=== PATIENT | male | born 1935 | race Caucasian/White ===

== ENCOUNTER 2017-03-28 06:45 | Inpatient (IN) | payer MEDICARE, OTHER ==
[~2017-03-28] VITALS: Ht 188 cm; Wt 85.7 kg
[~2017-03-28 06:45] MED LIST: BUMEX2 MG PO; CARDIZEM CD240 MG PO; CARDIZEM LA120 MG PO; COLACE100 MG PO; COREG6.25 MG PO; COUMADIN5 MG PO; FLOMAX0.4 MG PO; KLOR-CON M2020 MEQ PO; LASIX40 MG PO; PRAVACHOL10 MG PO; PRAVACHOL20 MG PO; PROSCAR5 MG PO; XARELTO10 MG; XARELTO15 MG PO; XARELTO20 MG PO
[2017-03-28 07:18] LABS: BASOPHILS 0.1 % (0-2); EOSINOPHILS 0 % (0-7); HEMATOCRIT 40.5 % (42.0-54.0); HEMOGLOBIN 12.9 g/dL (13.5-17.5); IMMATURE GRANULOCYTES 0.4 % (0-5); MCH 31.7 pg (26.0-34.0); MCHC 31.9 g/dL (31.0-37.0); MCV 99.5 fL (80.0-100.0); MEAN PLATELET VOLUME 11.1 fL (7.4-10.4); MONOCYTES 9.4 % (2-11); NEUTROPHILS 81.1 % (40-80); PLATELET COUNT 196 10x3/uL (130-400); RBC 4.07 10x6/uL (4.20-6.10); RDW 13.8 % (11.5-14.5); WBC 19.6 10x3/uL (4.8-10.8)
[2017-03-28 07:33] LABS: ALBUMIN 3.1 g/dL (3.4-5.0); ANION GAP 11.3 mmol/L (8-16); BILIRUBIN - TOTAL 1.23 mg/dL (0.2-1.3); CALCIUM 8.5 mg/dL (8.5-10.1); CARBON DIOXIDE 29.9 mmol/L (21.0-32.0); CREATININE - SERUM 1.9 mg/dL (0.6-1.3); POTASSIUM - SERUM 3.2 mmol/L (3.5-5.1); PROTEIN - SERUM 6.7 g/dL (6.4-8.2)
[2017-03-28 07:58] LABS: TROPONIN-I 0.119 ng/mL (0.000-0.060)
[2017-03-28 09:13] LABS: APPEARANCE CLOUDY (CLEAR); BACTERIA MODERATE /hpf (NONE SEEN); BILIRUBIN NEGATIVE (NEGATIVE); COLOR YELLOW (YELLOW); EPITHELIAL CELLS 0-5 /hpf (0-5); GLUCOSE NEGATIVE (NEGATIVE); KETONE NEGATIVE (NEGATIVE); LEUKOCYTE ESTERASE 2+ (NEGATIVE); MUCUS <1+ /lpf (NONE SEEN); NITRITE NEGATIVE (NEGATIVE); PROTEIN 1+ mg/dL (NEGATIVE); UROBILINOGEN NORMAL (NORMAL); WHITE CELLS - URINE >50 /hpf (0-5)
--- NOTE | 2017-03-28 09:28 | NUR ---
TRANSFER FROM ER BY STRETCHER. OREINTED TO ROOM. CALL LIGHT IN REACH. WILL CONT. PLAN OF CARE.
[2017-03-28] MEDS ORDERED: FERROUS SULFAT325 MG PO (09:47)
[2017-03-28 09:57] VITALS: BP 105/60; BMI 24.4
--- NOTE | 2017-03-28 15:18 | NUR ---
US RESULTS CALLED TO DR. CARRILLO.
--- NOTE | 2017-03-28 19:50 | NUR ---
PT RESTING IN BED. ALERT/ORIENTED. O2 @ 2L/NC WITH NONLABORED RESPIRATIONS. 89 CAF PER TELEMETRY. CARDIZEM DRIP AT 5ML/HR INFUSING TO LEFT HAND, WELL NS @ 75ML/HR. NO NEEDS AT THIS TIME. CALL LIGHT IN REACH. CPOC.
[2017-03-28 21:33] VITALS: BP 118/71
--- NOTE | 2017-03-28 22:11 | NUR ---
BEDTIME MEDS GIVEN. PT PULLED UP AND ASSISTED TO REPOSITION. IVF NS @ 75ML/HR AND CARDIZEM AT 5ML/HR INFUSING TO LEFT HAND. CPOC.
[2017-03-28 23:00] VITALS: BP 115/73
[2017-03-29 05:34] LABS: BASOPHILS 0.2 % (0-2); EOSINOPHILS 0.9 % (0-7); HEMATOCRIT 38.5 % (42.0-54.0); HEMOGLOBIN 12.3 g/dL (13.5-17.5); IMMATURE GRANULOCYTES 0.6 % (0-5); LYMPHOCYTES 16.3 % (15-50); MCH 32.1 pg (26.0-34.0); MCHC 31.9 g/dL (31.0-37.0); MCV 100.5 fL (80.0-100.0); MEAN PLATELET VOLUME 11.8 fL (7.4-10.4); MONOCYTES 16.5 % (2-11); NEUTROPHILS 65.5 % (40-80); PLATELET COUNT 208 10x3/uL (130-400); RBC 3.83 10x6/uL (4.20-6.10); WBC 16.3 10x3/uL (4.8-10.8)
[2017-03-29 06:23] LABS: ALBUMIN 2.5 g/dL (3.4-5.0); BILIRUBIN - TOTAL 0.47 mg/dL (0.2-1.3); CALCIUM 8.3 mg/dL (8.5-10.1); CARBON DIOXIDE 29.5 mmol/L (21.0-32.0); CREATININE - SERUM 1.5 mg/dL (0.6-1.3); POTASSIUM - SERUM 3.5 mmol/L (3.5-5.1)
[2017-03-29 06:25] LABS: TROPONIN-I 0.088 ng/mL (0.000-0.060)
[2017-03-29 06:37] VITALS: BP 110/60
--- NOTE | 2017-03-29 07:36 | NUR ---
AWAKE AND DRINKING COFFEE. MONITOR SHOW UCAF @126. CARDIZEM GTT @5. [facility]
[2017-03-29 08:22] VITALS: BP 101/63
[2017-03-29 11:00] VITALS: Ht 188 cm; Wt 85.7 kg
[2017-03-29 11:43] VITALS: BP 134/83
--- NOTE | 2017-03-29 16:52 | NUR ---
RESTING QUIETLY. VISITING WITH FAMILY.
--- NOTE | 2017-03-29 19:00 | NUR ---
INITIAL ROUNDS MADE. PT SITTING UP IN BED RESTING WELL, WATCHING TV. NO NEEDS OR C/O VOICED AT THIS TIME. CALL LIGHT IN REACH. WILL CONT TO MONITOR.
[2017-03-29 20:00] VITALS: BP 131/94
[2017-03-30] VITALS: BP 122/81
--- NOTE | 2017-03-30 01:05 | NUR ---
PARTS INSPECTOR AT BEDSIDE FOR VS. NEEDS ADDRESSED AT THIS TIME. CALL LIGHT IN REACH. WILL CONT TO MONITOR.
--- NOTE | 2017-03-30 01:41 | NUR ---
LT HAND IV PULLED OUT IN COVERS. RESITED 20G RT FA, X1 STICK.
[2017-03-30 05:23] LABS: BASOPHILS 0.3 % (0-2); EOSINOPHILS 0.8 % (0-7); HEMATOCRIT 40.3 % (42.0-54.0); HEMOGLOBIN 12.6 g/dL (13.5-17.5); IMMATURE GRANULOCYTES 0.6 % (0-5); LYMPHOCYTES 20.1 % (15-50); MCH 31.7 pg (26.0-34.0); MCHC 31.3 g/dL (31.0-37.0); MCV 101.3 fL (80.0-100.0); MEAN PLATELET VOLUME 12.2 fL (7.4-10.4); MONOCYTES 12.4 % (2-11); NEUTROPHILS 65.8 % (40-80); RBC 3.98 10x6/uL (4.20-6.10); RDW 13.8 % (11.5-14.5); WBC 14.2 10x3/uL (4.8-10.8)
[2017-03-30 05:34] LABS: PLATELET COUNT 250 10x3/uL (130-400)
[2017-03-30 06:17] LABS: ANION GAP 11.9 mmol/L (8-16); CALCIUM 8.3 mg/dL (8.5-10.1); CARBON DIOXIDE 30.5 mmol/L (21.0-32.0); CREATININE - SERUM 1.6 mg/dL (0.6-1.3); POTASSIUM - SERUM 3.4 mmol/L (3.5-5.1)
--- NOTE | 2017-03-30 08:00 | NUR ---
ASSESSMENT COMPLETED. TELEMERTY SHOWS AFIB. 02 AT 2 LM PER NC. IV TO RIGHT FA WITH NS AT 75 AND CARDIZEM AT 10. SR UP WITH CALL LIGHT IN REACH FAMILY AT BEDSIDE. WILL MONITOR
[2017-03-30 09:06] VITALS: BP 115/75
--- NOTE | 2017-03-30 11:48 | NUR ---
PT SLEEPING AT MOMENT. FAMILY AT BEDSIDE. MONITOR SHOWS UCAF @ 96. CARDIZEM GTT ON AT 10.
[2017-03-30 11:57] VITALS: BP 134/81
--- NOTE | 2017-03-30 15:35 | NUR ---
Patient Name: RAQUEL JENKINS Admission Status: ER Accout number: [id number] Admission Date: 03-28-2017 : 1935 Admission Diagnosis: Attending: POLLY Current LOS: 2 Anticipated DC Date: Planned Disposition: Home Primary Insurance: MEDICARE A & B Discharge Planning Comments: CM MET WITH PATIENT AND HIS SON HAZEL JENKINS (WHO IS OUT OF TOWN FOR RAILROAD MOST OF THE TIME). PATIENT STATED THAT HE PLANS TO RETURN HOME ALONE, BUT STATED THAT HAZEL AND HIS HEMANTH LIVE JUST NEXT DOOR. HE STATED THAT HEMANTH JENKINS, [id number], , WILL BE HIS TRANSPORT HOME. STATED THAT HE COULD NOT THINK OF ANY NEEDS FOR DISCHARGE. PATIENT IS CURRENTLY ON OXYGEN AT 2L N/C, AND DOES NOT USE HOME OXYGEN. CM WILL FOLLOW TO SEE IF WALK STUDY WILL BE NEEDED BEFORE DISCHARGE. CM WILL FOLLOW AND ASSIST NEEDED. Back Maker: Cecelia Srinivasan Is the patient Alert and Oriented? Yes * How many steps to enter\exit or inside your home? 4 * PCP DR CATRACHO AZAR * Pharmacy [facility] [address] * Preadmission Environment Home Alone * ADLs Independent * Equipment None * List name and contact numbers for known caregivers / representatives who currently or will assist patient after discharge: HEMANTH JENKINS, DAUGHTER IN LAW, * Community resources currently utilized None * Additional services required to return to the preadmission environment? No * Can the patient safely return to the preadmission environment? Yes * Has this patient been hospitalized within the prior 30 days at any hospital? No
[2017-03-30 16:03] VITALS: BP 130/84
--- NOTE | 2017-03-30 19:59 | NUR ---
CT CALLED AND STATED THAT THEIR RADIOLOGIST WANTED TO POSTPONE THE CT OF ABD/PELVIS TONIGHT DUE TO A ELEVATED CREATINE, HYDRATE THE PT OVER NIGHT AND DO THE SCAN IN THE AM, TOLD ROSEANNE THAT DR AVENDANO IS AWARE OF THE ELEVATED CREATINE AND STILL WANTED THE SCAN DONE TONIGHT, AND IF THEY READ HIS NOTES IT WILL EXPLAIN EVERYTHING. ROSEANNE SAID THAT SHE WILL LET THE RADIOLOGIST KNOW.
[2017-03-30 20:00] VITALS: BP 127/89
--- NOTE | 2017-03-30 20:10 | NUR ---
SPOKE WITH ROSEANNE IN CT, SHE SPOKE WITH THE RADIOLOGIST AND THEY AGREED TO GO AHEAD TO AND DO THE CT TONIGHT BUT TO GO AHEAD AND HYDRATE PT AND WILL RECHECK CREATINE IN AM.
--- NOTE | 2017-03-30 21:43 | NUR ---
GONE TO CT BY WC.
--- NOTE | 2017-03-30 22:01 | NUR ---
BACK TO ROOM FORM CT. HS MEDS GIVEN WITH FRESH ICE WATER. PT DENIES PAIN OR NEEDS, BED LOW, CL IN REACH.
[2017-03-31 01:17] VITALS: BP 107/87
[2017-03-31 05:10] LABS: BASOPHILS 0.4 % (0-2); EOSINOPHILS 1.3 % (0-7); HEMATOCRIT 40.2 % (42.0-54.0); HEMOGLOBIN 12.6 g/dL (13.5-17.5); IMMATURE GRANULOCYTES 1.1 % (0-5); MCH 31.3 pg (26.0-34.0); MCHC 31.3 g/dL (31.0-37.0); MEAN PLATELET VOLUME 11.7 fL (7.4-10.4); NEUTROPHILS 65.2 % (40-80); PLATELET COUNT 253 10x3/uL (130-400); RBC 4.02 10x6/uL (4.20-6.10); RDW 13.9 % (11.5-14.5); WBC 14.2 10x3/uL (4.8-10.8)
[2017-03-31 05:37] LABS: ANION GAP 9.8 mmol/L (8-16); CALCIUM 8.4 mg/dL (8.5-10.1); CARBON DIOXIDE 30.6 mmol/L (21.0-32.0); CREATININE - SERUM 1.4 mg/dL (0.6-1.3); PHOSPHOROUS 2.3 mg/dL (2.5-4.9); POTASSIUM - SERUM 3.4 mmol/L (3.5-5.1)
--- NOTE | 2017-03-31 07:12 | NUR ---
AM ROUNDS- PT IN BED, DENIES ANY NEEDS AT THIS TIME. URINAL EMPTIED, RT FA IV INFUSING 1/[id number] AT 100 AND CARDIZEM INFUSING AT 5. NC AT 2L. NAD NOTED, CALL LIGHT IN REACH, BED LOW, BEDSIDE RAILS X2, WILL CONTINUE TO MONITOR.
[2017-03-31 08:00] VITALS: BP 117/79
--- NOTE | 2017-03-31 10:00 | NUR ---
TELEMETRY [facility]. RH 120. RESP UL ON 02 2L NC. IV PATENT. SON AT BS. CALL LIGHT IN REACH. WILL MONITOR NEEDS.
--- NOTE | 2017-03-31 10:38 | NUR ---
IV STARTED TO RIGHT WRIST WITH 20 GAUGE CATH X 2 STICKS AND FLUSHED WITH NS. LINE IS PATENT.
--- NOTE | 2017-03-31 13:06 | NUR ---
Nutrition follow-up: Diet: Low sodium PO intake 50-75% of meals Labs reviewed Wt: 189# PO intake fair to good at this time. RDN following.
[2017-03-31 14:08] VITALS: BP 138/82
[2017-03-31 16:00] VITALS: BP 135/88
--- NOTE | 2017-03-31 19:28 | NUR ---
RECEIVED REPORT, PT TALKING ON PHONE, BED ID LOW, SRX2, CALL LIGHT IN REACH, WILL CONTINUE PLAN OF CARE
[2017-03-31 21:40] VITALS: BP 146/83
--- NOTE | 2017-04-01 01:09 | NUR ---
CORRESPONDENCE COORDINATOR AT BEDSIDE TO OBTAIN VITALS, CALL LIGHT IN REACH. WILL CONTINUE WITH PLAN OF CARE.
[2017-04-01 01:21] VITALS: BP 119/66
--- NOTE | 2017-04-01 03:22 | NUR ---
ASSESSMENT COMPLETE, SEE FLOW SHEET, PT SLEEPING NO DISTRESS NOTICED, BED IS LOW, SRX2, CALL LIGHT IN REACH, WILL CONTINUE PLAN OF CARE
[2017-04-01 04:47] VITALS: BP 125/83
[2017-04-01 05:20] LABS: BASOPHILS 0.3 % (0-2); EOSINOPHILS 0.7 % (0-7); HEMATOCRIT 40.4 % (42.0-54.0); HEMOGLOBIN 12.8 g/dL (13.5-17.5); IMMATURE GRANULOCYTES 1.6 % (0-5); LYMPHOCYTES 17.9 % (15-50); MCH 31.7 pg (26.0-34.0); MCHC 31.7 g/dL (31.0-37.0); MONOCYTES 11.3 % (2-11); NEUTROPHILS 68.2 % (40-80); PLATELET COUNT 286 10x3/uL (130-400); RBC 4.04 10x6/uL (4.20-6.10); RDW 13.9 % (11.5-14.5); WBC 15.4 10x3/uL (4.8-10.8)
[2017-04-01 05:39] LABS: ANION GAP 11.6 mmol/L (8-16); CALCIUM 8.4 mg/dL (8.5-10.1); CARBON DIOXIDE 29.1 mmol/L (21.0-32.0); CREATININE - SERUM 1.4 mg/dL (0.6-1.3); PHOSPHOROUS 2.7 mg/dL (2.5-4.9); POTASSIUM - SERUM 3.7 mmol/L (3.5-5.1)
--- NOTE | 2017-04-01 07:54 | NUR ---
ASSESSMENT DONE, DENIES NEEDS. SON AT SIDE.
[2017-04-01 08:40] VITALS: BP 141/82
--- NOTE | 2017-04-01 08:49 | EC ---
PATIENT:RAQUEL JENKINS DATE OF SERVICE: 03/28/17 SEX: M MEDICAL RECORD: [id number] DATE OF : [birth year] LOCATION:D.M2 D.212 AGE OF PATIENT: 81 ADMISSION DATE: 03/28/17 REFERRING PHYSICIAN: INTERPRETING PHYSICIAN: BRISA HERRERA MD ECHOCARDIOGRAM REPORT ECHO CHARGES 4 ECHO COMPLETE CLINICAL DIAGNOSIS: WEAKNESS/AFIB HX CHF/AFLUTTER/PACER ECHOCARDIOGRAPHIC MEASUREMENTS (adult normal given) AC root (d.<3.7cm) 3.6 LV Septum d (<1.2 cm> 1.4 Valve Excursion 1.5 LV Septum (systole) 1.8 Left Atria (s.<4.0cm> 4.9 LVPW d(<1.2cm) 1.1 RV (d.<2.3cm) 5.0 LVPW (sytole) 1.5 LV diastole(<5.6CM) 6.7 MV E-F(>70mm/sec) LV systole 5.8 LVOT Diameter 1.4 MV exc.(>10mm) 1.1 Est.ejection fraction (50-75%) Pericardial Effusion N DOPPLER: LVIT A 91.0 E LA RVSP 44 LVOT 81 AOP1/2T Asc. Ao 136 RVOT 64 RA PA 111 AV Gradient Peak 7.36 AV Mean 3.40 AV Area 1.1 MV Gradient Peak MV Mean MV Area COMMENTS: Garment Manufacturer: Esperanza VIGLI Subway Train Driver:Melvina Grimm TAPE# PACS DATE OF SERVICE: 03/28/2017 Echocardiogram FINDINGS: 1. Left ventricular chamber size is dilated. Left ventricular systolic function is moderately to severely reduced, overall ejection fraction 25% to 30%. 2. Left atrium is enlarged at 4.9 cm. Right atrium and right ventricular chamber sizes are as well mildly dilated giving 4-chamber dilatation. ECHOCARDIOGRAM REPORT [id number] RAQUEL JENKINS 3. Valvular structures have normal structure and motion. 4. Doppler interrogation reveals mild aortic insufficiency, mild mitral regurgitation, moderate tricuspid regurgitation, no other valvular insufficiency or stenosis. Pulmonary systolic pressure is mildly elevated estimated at 44 mmHg. 5. No evidence of pericardial effusion or left ventricular thrombus. 6. The patient is in atrial fibrillation during the study. TRANSINT:[id number] Voice Confirmation ID: [id number] DOCUMENT ID: [id number] BRISA HERRERA MD at 0849 CC: [id number] DICTATION DATE: 03/29/17922 DIAGNOSTIC MEDICAL SONOGRAPHER: 03/29/17 1752 ADM IN [facility] [address] [id number]
--- NOTE | 2017-04-01 09:30 | NUR ---
RESP UL ON . IV PATENT. CALL LIGHT IN REACH. WILL CONT. PLAN OF CARE.
--- NOTE | 2017-04-01 16:34 | NUR ---
WITHOUT CHANGES OR DISTRESS NOTED AT THIS TIME. DENIES NEEDS. FAMILY AT SIDE.
[2017-04-01] MEDS ORDERED: LEVAQUIN750 MG PO (18:53)
--- NOTE | 2017-04-01 20:34 | NUR ---
IV REMOVED, DISCHARGE INSTRUCTION EXPLAIN, PRESCRIPE ESCRIBE TO MELYSSA, PT DISCHARGE HOME WITH SON
--- NOTE | 2017-04-02 12:53 | CN ---
PATIENT NAME:RAQUEL JENKINS MEDICAL RECORD: [id number] : 37 LOCATION:D. D.2120 ADMIT DATE: 03/28/17 ACCOUNT: [id number] CONSULTING PHYSICIAN: LB GOEL MD REFERRING PHYSICIAN: CATRACHO AZAR MD DATE OF CONSULTATION: 03/28/2017 HISTORY OF PRESENT ILLNESS: An 81-year-old gentleman with known history of coronary artery disease, also has history of atrial fibrillation, true sick sinus syndrome status post pacemaker placement. He has been on Xarelto for CVA prophylaxis, actually does quite well at home. Feeling malaise, fatigue, tiredness for the last few days, presented to the ER, was found to have UTI, incidentally noted to have atrial fibrillation with RVR, currently rates are better on Cardizem drip. We are asked to see him concerning his cardiovascular status. PAST MEDICAL HISTORY: Includes: 1. History of atrial fibrillation and true sick sinus syndrome, status post permanent pacemaker placement. 2. Hypertension. 3. Coronary artery disease. 4. Dyslipidemia. 5. BPH. ALLERGIES: None known. REGULAR MEDICATIONS: Include Flomax 0.4 daily, Xarelto 15 mg daily, Coreg 6.25 b.i.d., diltiazem 120 mg b.i.d., pravastatin 20 every day, Bumex 2 daily, potassium supplementation, Proscar 5 daily. SOCIAL HISTORY: Lives here in [place]. He is a nonsmoker. Easily takes care of all ADLs and stays active. REVIEW OF SYSTEMS: The patient reports easy bruising but reports no swollen glands. The patient reports no fever, no night sweats, no significant weight gain, no significant weight loss. No significant exercise tolerance. The patient reports no dry eyes, no irritation, no vision change. Patient reports no difficulty hearing and no ear pain. Patient reports no frequent nose bleeds or nose and sinus problems. Patient reports on arm pain on exertion. No shortness of breath while lying down. No history of heart murmur. Patient reports no cough, no wheezing or coughing up blood. Patient reports no abdominal pain, no vomiting. Normal appetite. No diarrhea and not vomiting blood. No nausea and no constipation. Patient reports no incontinence. No difficulty urinating. No hematuria. No increased frequency. Patient reports no muscle aches. No weakness, no arthralgias, no back pain. No swelling of the extremities. Patient reports no abnormal mole, no jaundice, no rashes. Reports no loss of consciousness. No weakness and no numbness. No seizures, dizziness, or headaches. The patient reports no depression, no sleep disturbance, feeling safe in a relationship and no alcohol abuse. Patient reports on fatigue. Reports no runny nose or sinus pressure. No itching, no hives, and no frequent sneezing. PHYSICAL EXAMINATION: GENERAL: Pleasant gentleman who appears stated age. No acute distress. VITAL SIGNS: Blood pressure 105/60, pulse 115. CONSULT REPORT [id number] RAQUEL JENKINS HEENT: Normocephalic, atraumatic. NECK: No bruits noted. HEART: Irregular, tachycardic, II/ systolic ejection murmur. LUNGS: Actually good excursion. ABDOMEN: Soft, nontender. EXTREMITIES: Pulses preserved, 2+ with no edema. NEUROLOGICAL: Grossly intact. DIAGNOSTIC DATA: ECG shows AFib, RVR. IMPRESSION: Atrial fibrillation with rapid ventricular response suspected secondary to intravascular volume depletion, urinary tract infection and increased catacholmine drive, etc. Agree with Cardizem drip, rehydration. We will check echocardiographic study since it has been over a year since previous echo. Further recommendations based on the above. TRANSINT:[id number] Voice Confirmation ID: [id number] DOCUMENT ID: [id number] LB GOEL MD at 1253 CC: [id number] DICTATION DATE: 03/28/17 1022 HVAC MECHANICAL ENGINEER: 03/28/17 1125 DIS IN 04/01/17 [id number] [place] [address]
--- NOTE | 2017-04-06 10:04 | CN ---
PATIENT NAME:RAQUEL JENKINS MEDICAL RECORD: [id number] : 37 LOCATION:D.M2 D.2120 ADMIT DATE: 03/28/17 ACCOUNT: [id number] CONSULTING PHYSICIAN: CLARISSA BROWN MD REFERRING PHYSICIAN: CATRACHO AZAR MD DATE OF CONSULTATION: 03/30/2017 CHIEF COMPLAINT: Hernia and atrial fibrillation with rapid ventricular response. HISTORY OF PRESENT ILLNESS: I was asked to see this patient in consultation by Dr. Talbot. The patient has been bacteremic. He has a very large right inguinal hernia. A portion of this is incarcerated. The hernia is nontender. There may be a large hydrocele associated with this hernia. He has had no nausea and no vomiting. He does not have abdominal distention. I do not believe that he has any strangulation nor does he have a bowel obstruction. The hernia is partially reducible. Palpation and attempts of reducing the right inguinal hernia aggravate. Nothing alleviates. The symptoms are mild. It causes mild discomfort. The patient states that he has not had an interest in having the hernia repaired. The patient does have polycystic kidney disease. This is a consultation note addendum. For the typed portion of the consult note, including the past medical and surgical history, allergies and social history, please see the chart. REVIEW OF SYSTEMS: No nausea, no vomiting, no fever and no chills. The rest of the review of systems is negative other than as is described above. PHYSICAL EXAMINATION: GENERAL: The patient does not appear acutely ill. He does not appear chronically ill. VITAL SIGNS: Reviewed. HEAD: External ears appear normal. EYES: Extraocular movements are intact. NECK: Trachea is midline. CHEST: No intercostal retractions. PULMONARY: Nonlabored, no stridor. ABDOMEN: Nontender. GENITOURINARY: As described above. Huge right inguinal hernia, which is partially reducible. Both testicles are descended. INTEGUMENT: No rash and no ulcerations. PSYCHIATRIC: Normal affect. NEUROLOGIC: Nonfocal, no lethargy. The patient answers questions appropriately and moves all extremities well. BACK: No thoracic kyphosis. LYMPHATIC: No lymphangitic streaking of the exposed extremities. IMPRESSION: Huge right inguinal hernia, which I doubt is the source of the patient's illness at this time. As he has been bacteremic, a right inguinal hernia repair with mesh is likely contraindicated as the mesh would have a significant chance of becoming infected. The patient is not interested in having a hernia repair at this time. PLAN: Dr. Talbot would like to obtain a CT scan and I will review the CT images CONSULT REPORT [id number] RAQUEL JENKINS once the scan had been performed. The patient's hernia can be repaired as an outpatient. TRANSINT:[id number] Voice Confirmation ID: [id number] DOCUMENT ID: [id number] CLARISSA BROWN MD at 1004 CC: CATRACHO AZAR MD [id number] DICTATION DATE: 04/01/17 1126 ROLL LINE OPERATOR: 04/01/17 2235 DIS IN 04/01/17 [id number] [place] [address]
== END 2017-04-01 20:36 | disposition home or self-care (01) | DRG 872 ==
LOC: D.ER 06:45 → D.M2 08:42
PROVIDERS: Emergency Medicine; Family Medicine; ADMIT Family Medicine
DX: A41.9 Sepsis, unspecified organism (principal); Q61.3 Polycystic kidney, unspecified; N17.9 Acute kidney failure, unspecified; K40.30 Unilateral inguinal hernia, with obstruction, without gangrene, not specified as recurrent; N30.90 Cystitis, unspecified without hematuria; I25.10 Atherosclerotic heart disease of native coronary artery without angina pectoris; I48.2 Chronic atrial fibrillation; I10 Essential (primary) hypertension; E78.5 Hyperlipidemia, unspecified; N40.0 Benign prostatic hyperplasia without lower urinary tract symptoms; N43.3 Hydrocele, unspecified; E86.9 Volume depletion, unspecified; Z95.0 Presence of cardiac pacemaker

== ENCOUNTER → 2017-04-14 13:33 | Outpatient (CLI) | payer MEDICARE, OTHER ==
[2017-03-29 11:00] VITALS: BMI 24.4
[~2017-04-14 13:33] MED LIST changes: +FERROUS SULFAT325 MG PO; +LEVAQUIN750 MG PO
== END | disposition home or self-care (01) ==
LOC: D.US 10:00
DX: E21.3 Hyperparathyroidism, unspecified (principal)

== ENCOUNTER 2017-07-30 05:51 | Day surgery (SDC) | payer MEDICARE, OTHER ==
[2017-07-29 09:00] LABS: BASOPHILS 0.7 % (0-2); EOSINOPHILS 1.7 % (0-7); HEMOGLOBIN 14.4 g/dL (13.5-17.5); IMMATURE GRANULOCYTES 0.1 % (0-5); MCH 32.5 pg (26.0-34.0); MCV 101.6 fL (80.0-100.0); MEAN PLATELET VOLUME 11.4 fL (7.4-10.4); MONOCYTES 10.6 % (2-11); NEUTROPHILS 55.9 % (40-80); RBC 4.43 10x6/uL (4.20-6.10); RDW 13.8 % (11.5-14.5); WBC 8.4 10x3/uL (4.8-10.8)
[2017-07-29 09:13] LABS: ANION GAP 8.9 mmol/L (8-16); CALCIUM 9.2 mg/dL (8.5-10.1); CARBON DIOXIDE 32.5 mmol/L (21.0-32.0); CREATININE - SERUM 1.7 mg/dL (0.6-1.3); POTASSIUM - SERUM 3.4 mmol/L (3.5-5.1)
[2017-07-29 09:14] LABS: PLATELET COUNT 223 10x3/uL (130-400)
[2017-07-30 06:24] VITALS: BP 144/90; BMI 22.2
--- NOTE | 2017-07-30 12:12 | NUR ---
SIRISHA MEYERSARE ON @ ADMIT
--- NOTE | 2017-07-30 15:54 | NUR ---
1325 IV DC WITH CATHER TIP INTACT
--- NOTE | 2017-07-30 15:56 | NUR ---
1400 KAYCE CATHER TEACHING DONE WITH PATIENT AND SON, AND LEG BAG TEACHING, , LUZ ALBARRAN
--- NOTE | 2017-08-02 10:29 | OP ---
PATIENT NAME: RAQUEL JENKINS MEDICAL RECORD: [id number] :37 LOCATION:D.OPS ADMISSION DATE: SURGEON: WYATT VIVAS MD DATE OF OPERATION: 07/30/2017 SURGEON: Wyatt Vivas MD ANESTHESIA: General anesthesia by Cecelia Mcmullen CRNA. PREOPERATIVE DIAGNOSIS: Obstructive benign prostatic hyperplasia, recurrent urinary tract infections, and right inguinal hernia. PROCEDURES: Cystoscopy, GreenLight laser transurethral resection of the prostate, power was 80-180 kelly, laser on time 31 minutes 6 seconds, energy 211,014 joules. FINDINGS: Obstructive bilateral lateral lobes. Small bladder stone. Approximately 80 gram prostate. Single ureteral orifices bilaterally. No bladder tumors. Trabeculated bladder. ESTIMATED BLOOD LOSS: Minimal. CLINICAL HISTORY: This is an 82-year-old male, who was recently admitted to hospital for urosepsis due to recurrent E. coli UTIs. He has a very enlarged prostate and he has incomplete bladder emptying. He was also found to have a massive right inguinal hernia with bowel contents going down into the right scrotum. Finally, he was found to have hyperparathyroidism, for which he is seeing Dr. Huitron. Today, Dr. Adhikari will be reducing his right inguinal hernia and probably performing a right orchiectomy also. I will be performing a transurethral resection of prostate using the GreenLight laser. I am doing my part first and then Dr. Adhikari will follow. DESCRIPTION OF PROCEDURE: The patient was given perioperative antibiotics. He was given induction of general anesthesia and then placed in dorsal lithotomy position. He was prepped and draped. I used the laser resectoscope with visual obturator and a 30-degree lens for cystoscopy. Penile urethra was nonobstructive. No lesions were seen in the penile urethra. Going into the prostate, he has massively enlarged lateral lobes. There is a rather small median lobe. Near the bladder neck, there are some large vesicular areas of bladder mucosa, which balloon out and obstruct the bladder neck. Going into the bladder itself, he has single ureteral orifices on each side. They are in a very well defined trigonal ridge, which is unfortunately rather close to the bladder neck. There was also a small bladder stone that I tried to get out with irrigation. It did come out. No bladder tumors were seen. Furthermore, I did not see the bladder going into the hernia canal. We then introduced the laser fiber. The resection was maintained between the bladder neck and just proximal to the verumontanum on the posterior wall of the prostate. The lateral lobes to extend distal to the verumontanum. We started with the level of 80 kelly. The main aim was to create a channel posteriorly. This was done. Also, I wanted to devascularize the prostatic urethral mucosa. We encountered a fair amount of bleeding during this process, especially from the bladder neck and occasionally we had to use the coagulation setting on the laser to stop any arterial or venous bleeding that was significant. This took a fair amount of time, especially at the bladder neck and near the apex of the prostate. Once the apical tissues had been taken down and we had significant removal of the bladder OPERATIVE REPORT [id number] RAQUEL JENKINS, then I progressively increased the power level up to remove the lateral lobes more expeditiously. Whenever I did encounter significant arterial or venous bleeding, I would have to back the power level down to about 100 kelly in order to create more heating than vaporization. At the end of procedure, the verumontanum was still intact. We had gotten down to capsule almost all around with prostatic stones being unroofed. There was a clear channel all the way through when sitting at the external urinary sphincter going all the way through to the bladder neck. No bleeding was seen. The scope was then removed and the laser was turned off. A 20-Slovak 3-way Mejia catheter was introduced into the bladder. The balloon was inflated with 30 cc of sterile water. A catheter plug was placed to obstruct the inflow port of the catheter and the bag was put to straight drainage. The patient will be repositioned in supine position and he will be reprepped and redraped for Dr. Adhikari surgery. TRANSINT:[id number] Voice Confirmation ID: [id number] DOCUMENT ID: [id number] WYATT VIVAS MD at 1029 CC: [id number] DICTATION DATE: 07/30/17 0957 MEDICAL LAB DIRECTOR: 07/30/17 1133 [facility] 07/30/17 [id number] [place] [address]
--- NOTE | 2017-08-04 10:17 | OP ---
PATIENT NAME: RAQUEL JENKINS MEDICAL RECORD: [id number] :37 LOCATION:D.OPS ADMISSION DATE: SURGEON: CLARISSA BROWN MD DATE OF OPERATION: 07/30/2017 PREOPERATIVE DIAGNOSIS: Huge right inguinal scrotal hernia. POSTOPERATIVE DIAGNOSES: Huge right incarcerated inguinal scrotal hernia. PROCEDURES: 1. Right inguinal hernia repair with mesh. 2. Right orchiectomy. SURGEON: Clarissa Brown MD FLATCAR WHACKER: None. BLOOD LOSS: Minimal. ANESTHESIA: General. COMPLICATIONS: None. The risks, possible complications and alternatives to procedure were discussed with the patient. He elects to proceed. OPERATIVE COURSE: The patient was conveyed to the operating room electively on 07/30/2017. General anesthesia was induced by the anesthesia staff. The initial procedure was a urologic procedure by Dr. Vivas. The patient was then reprepped and redraped. A transverse incision was accomplished in the right groin. Sharp dissection was carried down through skin and subcutaneous tissue as well as Syed's fascia. The external oblique aponeurosis was then incised along the direction of its fibers. I bluntly dissected down through the internal oblique and transversus abdominis muscle layers. I tried to fashion a preperitoneal pocket. This is difficult due to the huge size of the hernia sac. I was unable to reduce the hernia sac contents. A counterincision was accomplished in the right scrotum laterally. I dissected down into the hernia sac. Portions of the hernia sac were excised. There were adhesions from the colon and into the small bowel to the hernia sac. There was approximately a foot of small bowel as well as a foot of colon including the cecum and the appendix in the right hemiscrotum. I was unable to deliver these contents back into the intraabdominal compartment even after incising the peritoneum through the initial (superior) incision. Utilizing a back and forth motion I was still unable to reduce the contents. I had to divide the inguinal floor anteriorly. Even after doing this it was difficult to reduce the contents back into the abdominal cavity. I was able to do so. I had to sacrifice the right testicle. The cord structures were ligated highly and divided distal to this. The testicle was then bluntly dissected out of the right hemiscrotum and sent as a specimen. I excised portion of the hernia sac. I cut 2 ovals out of a polypropylene mesh. The 2 ovals were sutured together one on top of the other with a running #1 Surgidac. I reperitonealized with a running #1 Vicryl. I placed the mesh in the preperitoneal space. Once I was satisfied with placement of the mesh, I rebuilt the patient's inguinal floor. The repair was conducted with multiple OPERATIVE REPORT [id number] RAQUEL JENKINS interrupted horizontal mattress of #1 Surgidac as well as another running #1 Surgidac. The external oblique aponeurosis was closed with running #1 Vicryls. The scrotum was closed in 2 layers with interrupted 3-0 Vicryl for the deep dermis as well as a running horizontal mattress of #1 Vicryl Rapide for the scrotal skin. The superior incision was closed in several layers. Syed's fascia was approximated with interrupted 3-0 Vicryls. The subdermis was approximated with interrupted 3-0 Vicryls. The skin was approximated with a running intracuticular 4-0 Vicryl. Sterile dressings were applied. The patient was then extubated and conveyed to post-anesthesia care unit where he was in stable condition. TRANSINT:[id number] Voice Confirmation ID: [id number] DOCUMENT ID: [id number] CLARISSA BROWN MD at 1017 CC: CATRACHO AZAR MD and CLARISSA VIVAS MD [id number] DICTATION DATE: 07/30/17 1207 SLASHER RUNNER: 07/30/17 1254 [facility] 07/30/17 [id number] [place] [address]
== END 2017-07-30 14:30 | disposition home or self-care (01) ==
LOC: D.OPS 05:51 → D.PAN 08:00 → D.OPS 14:30
PROVIDERS: Anesthesiology
DX: N40.0 Benign prostatic hyperplasia without lower urinary tract symptoms (principal); K40.90 Unilateral inguinal hernia, without obstruction or gangrene, not specified as recurrent; N21.0 Calculus in bladder; I10 Essential (primary) hypertension; I50.9 Heart failure, unspecified; G47.30 Sleep apnea, unspecified; Z95.5 Presence of coronary angioplasty implant and graft; I48.91 Unspecified atrial fibrillation; R94.31 Abnormal electrocardiogram [ECG] [EKG]; Z01.812 Encounter for preprocedural laboratory examination

== ENCOUNTER 2017-08-23 16:17 | Inpatient (IN) | payer MEDICARE, OTHER ==
[2017-08-23 17:19] VITALS: BP 122/64; BMI 22.3
--- NOTE | 2017-08-23 17:29 | NUR ---
ARRIVED FROM DR. OFFICE NO APPARENT DISTRESS. PT AWAKE AND ALERTED. SEE ASSESSMENT FOR FURTHER EVAL. MONIOTR SHOWS TACY. DR CHAVEZ HERE.
--- NOTE | 2017-08-23 18:17 | NUR ---
IV X2 STARTED. CARDIZEM BOLUS AND DRIP ORDERED. BOLUS OF 20 MG GIVEN. CARDIZEM GTT STARTED AT 5. MONITOR SHOWS UNCONTROL AFIB AT PRESENT. RATE IS 115-139. NO MORE RUNS OF V TACHY. WILL CONTINUE TO MONITOR.
--- NOTE | 2017-08-23 20:00 | NUR ---
RESTING IN BED. ALERT/ORIENTED. UCAF PER TELEMETRY. PACEMAKER. NONLABORED RESPIRATIONS ON ROOM AIR. CARDIZEM DRIP AT 5ML/HR INFUSING TO LFA. ALSO HAS SALINE LOCK FURTHER UP ON SAME LFA. ASSESSMENT COMPLETED. CALL LIGHT IN REACH. CPOC.
[2017-08-23 20:59] VITALS: BP 107/59
--- NOTE | 2017-08-23 21:15 | NUR ---
ROCEPHIN IVPB NOW UP AND INFUSING TO SECOND SALINE LOCK ON LFA.
--- NOTE | 2017-08-23 23:07 | NUR ---
IV ABT COMPLETED AND PIV SALINE LOCKED. IV WITH CARDIZEM CAME APART AND SINCE PT IS ON XRALTO, THE PT BLEED ALOT BEFORE HE CALLED THE NURSE TO SAY HIS ARM FELT WET. IV CLEANED UP, RESECURED AND CARDIZEM DRIP RESTARTED AT 5ML/HR. NEW LINENS/BLANKETS/GOWN PROVIDED. PT IS NOW CLEAN AND RESTING COMFORTABLY.
[2017-08-24 00:30] VITALS: BP 120/80
--- NOTE | 2017-08-24 04:54 | NUR ---
PT HAS RESTED WITH NO DISTRESS. IV CARDIZEM INFUSING. CPOC.
--- NOTE | 2017-08-24 05:51 | NUR ---
IV LASIX ADMINISTERED. PT RESTING. CARDIZEM DRIP INFUSING.
[2017-08-24 05:59] LABS: BASOPHILS 0.1 % (0-2); EOSINOPHILS 0.8 % (0-7); HEMATOCRIT 41.9 % (42.0-54.0); HEMOGLOBIN 13.6 g/dL (13.5-17.5); IMMATURE GRANULOCYTES 0.4 % (0-5); LYMPHOCYTES 24.1 % (15-50); MCH 32.3 pg (26.0-34.0); MCHC 32.5 g/dL (31.0-37.0); MCV 99.5 fL (80.0-100.0); MEAN PLATELET VOLUME 11.8 fL (7.4-10.4); MONOCYTES 9.8 % (2-11); NEUTROPHILS 64.8 % (40-80); RBC 4.21 10x6/uL (4.20-6.10); RDW 14.8 % (11.5-14.5); WBC 13.4 10x3/uL (4.8-10.8)
[2017-08-24 06:03] VITALS: BP 116/70
[2017-08-24 06:06] LABS: PLATELET COUNT 270 10x3/uL (130-400)
[2017-08-24 06:38] LABS: ALBUMIN 2.6 g/dL (3.4-5.0); ANION GAP 13.3 mmol/L (8-16); BILIRUBIN - TOTAL 0.7 mg/dL (0.2-1.3); CALCIUM 8.9 mg/dL (8.5-10.1); CARBON DIOXIDE 26.6 mmol/L (21.0-32.0); CREATININE - SERUM 2.2 mg/dL (0.6-1.3); POTASSIUM - SERUM 3.9 mmol/L (3.5-5.1); PROTEIN - SERUM 5.9 g/dL (6.4-8.2)
[2017-08-24 08:07] VITALS: BP 102/65
--- NOTE | 2017-08-24 10:25 | NUR ---
TELEMETRY CAF. IV PATENT. SON AT BS. CALL LIGHT IN REACH. WILL MONITOR NEEDS.
--- NOTE | 2017-08-24 12:52 | NUR ---
URINE SPECIMEN COLLECTED AND TAKEN TO LAB FOR UA. WILL MONITOR.
[2017-08-24 13:38] VITALS: BP 100/73
[2017-08-24 13:47] LABS: APPEARANCE CLOUDY (CLEAR); BACTERIA MODERATE /hpf (NONE SEEN); BILIRUBIN NEGATIVE (NEGATIVE); COLOR YELLOW (YELLOW); EPITHELIAL CELLS OCC /hpf (0-5); GLUCOSE NEGATIVE (NEGATIVE); KETONE NEGATIVE (NEGATIVE); MUCUS <1+ /lpf (NONE SEEN); NITRITE NEGATIVE (NEGATIVE); PROTEIN TRACE mg/dL (NEGATIVE); UROBILINOGEN NORMAL (NORMAL); WHITE CELLS - URINE >50 /hpf (0-5)
[2017-08-24 16:52] VITALS: BP 98/73
--- NOTE | 2017-08-24 19:19 | NUR ---
UP WITH ASSIST TO BR.
--- NOTE | 2017-08-24 21:13 | NUR ---
HS MEDS GIVEN WITH FRESH ICE WATER, PT DENIES PAIN OR NEEDS, BED LOW, CL IN REACH.
[2017-08-24 21:53] VITALS: BP 114/75
--- NOTE | 2017-08-24 23:56 | NUR ---
RESTING WITH EYES CLOSED, RESPERATIONS EVEN, NO S/S DISTRESS NOTED.
--- NOTE | 2017-08-25 01:48 | NUR ---
NOTIFIED BY MT THAT PT HAD A RUN OF VTACH. ENTERED ROOM, PT AWAKE, LYING IN BED SUPINE, DENIES ANY PAIN AND DENIES FEELING ANY PALPATATIONS, PT STATED THAT HE IS "FEELING BETTER" PT IS ASYMPTOMATIC, REPOSITIONED IN BED FOR COMFORT, BED LOW, CL IN REACH, WILL CONT TO MONITOR.
[2017-08-25 02:37] VITALS: BP 127/85
--- NOTE | 2017-08-25 04:40 | NUR ---
PT LYING IN BED, AWAKE, ALERT, REQUESTING HIS URINAL. PT DENIES ANY OTHER NEEDS. CONTINUE TO MONITOR CLOSELY. PT DID HAVE A RUN OF V-TACH EARLIER, HOWEVER, PTS TELEMETRY WAS PLACED ON TOP OF PTS PACEMAKER AND PT WAS NEEDING REPOSITIONED. ONCE PT WAS REPOSITIONED AND HIS TELEMETRY REPOSITIONED ALSO, HE IMMEDIATELY WENT BACK INTO A-FIB. PT HAS REMAINED STABLE. CONTINUE TO MONITOR CLOSELY. BED LOW, CALL LIGHT IN REACH, SIDE RAILS X 2, HOB FLAT. PTS CARDIZEM GTT IS INFUSING ORDERED.
[2017-08-25 05:16] VITALS: BP 112/67
[2017-08-25 09:29] VITALS: BP 136/94
[2017-08-25 11:40] VITALS: BP 100/68
[2017-08-25 15:31] VITALS: BP 106/64
--- NOTE | 2017-08-25 16:05 | NUR ---
TELEMETRY CAF. LILIAN AGUILA DCD. WILL CONT. PLAN OF CARE.
--- NOTE | 2017-08-25 21:05 | NUR ---
HS MEDS GIVEN WITH FRESH ICE WATER, PT DENIES PAIN OR NEEDS, BED LOW, CL IN REACH.
[2017-08-25 21:32] VITALS: BP 123/81
--- NOTE | 2017-08-26 00:13 | NUR ---
FLOOR AND WALL APPLIER LIQUID AT BEDSIDE, CALL LIGHT IN REACH. WILL CONTINUE WITH PLAN OF CARE. 105 UCAF ON TELEMETRY
--- NOTE | 2017-08-26 01:50 | NUR ---
RESTING WITH EYES CLOSED, RESPERATIONS EVEN, NO S/S DISTRESS NOTED.
[2017-08-26 02:45] VITALS: BP 120/70
[2017-08-26 04:42] VITALS: BP 114/75
--- NOTE | 2017-08-26 07:30 | NUR ---
RECEIVED PT IN BED EYES CLOSED RESP UNLABORED NAD NOTED
[2017-08-26 09:45] VITALS: BP 144/85
--- NOTE | 2017-08-26 13:00 | NUR ---
reviewed discharge instructions with pt and daughter in law both stated understanding copy given dcd saline lock tolfa with 22 ga iv cath intact site free of redness or edema pt discharged home left unit via w/c in stable condition with all personal belongings
== END 2017-08-26 13:00 | disposition home or self-care (01) | DRG 309 ==
LOC: OBSVTIME 16:17 → D.M2 16:17
PROVIDERS: ADMIT Family Medicine
DX: I48.91 Unspecified atrial fibrillation (principal); Q61.3 Polycystic kidney, unspecified; I50.42 Chronic combined systolic (congestive) and diastolic (congestive) heart failure; I11.0 Hypertensive heart disease with heart failure; N28.9 Disorder of kidney and ureter, unspecified; I95.9 Hypotension, unspecified; Z86.73 Personal history of transient ischemic attack (TIA), and cerebral infarction without residual deficits; Z95.0 Presence of cardiac pacemaker; Z87.891 Personal history of nicotine dependence

== ENCOUNTER → 2017-09-01 18:45 | Outpatient (CLI) | payer MEDICARE, OTHER ==
[2017-08-23 17:19] VITALS: BMI 22.3
== END | disposition home or self-care (01) ==
LOC: D.LABREF 18:45
DX: N39.0 Urinary tract infection, site not specified (principal)

== ENCOUNTER → 2017-09-21 17:15 | Outpatient (CLI) | payer MEDICARE, OTHER ==
[2017-08-23 17:19] VITALS: BMI 22.3
== END | disposition home or self-care (01) ==
LOC: D.LABREF 17:15
DX: N39.0 Urinary tract infection, site not specified (principal)

== ENCOUNTER 2017-10-09 08:50 | Emergency (ER) | payer MEDICARE, OTHER ==
[2017-10-09 09:37] LABS: BASOPHILS 0.1 % (0-2); EOSINOPHILS 0 % (0-7); HEMATOCRIT 48.1 % (42.0-54.0); HEMOGLOBIN 15.9 g/dL (13.5-17.5); IMMATURE GRANULOCYTES 0.4 % (0-5); LYMPHOCYTES 28.8 % (15-50); MCH 32.4 pg (26.0-34.0); MCHC 33.1 g/dL (31.0-37.0); MEAN PLATELET VOLUME 13.6 fL (7.4-10.4); MONOCYTES 8.8 % (2-11); NEUTROPHILS 61.9 % (40-80); RBC 4.91 10x6/uL (4.20-6.10); RDW 15.4 % (11.5-14.5); WBC 13.4 10x3/uL (4.8-10.8)
[2017-10-09 09:42] LABS: PLATELET COUNT 170 10x3/uL (130-400)
[2017-10-09 09:46] LABS: APTT 34.3 SECONDS (22.8-39.4); INR 3.41 (0.85-1.17); PROTIME 33.6 SECONDS (11.6-15.0)
[2017-10-09 09:51] LABS: ALBUMIN 3.1 g/dL (3.4-5.0); ANION GAP 18.6 mmol/L (8-16); BILIRUBIN - TOTAL 1.4 mg/dL (0.2-1.3); CALCIUM 9.1 mg/dL (8.5-10.1); CARBON DIOXIDE 21.6 mmol/L (21.0-32.0); CREATININE - SERUM 3.8 mg/dL (0.6-1.3); POTASSIUM - SERUM 5.2 mmol/L (3.5-5.1)
[2017-10-09 10:04] LABS: APPEARANCE TURBID (CLEAR); COLOR DK YELLOW (YELLOW); SPECIFIC GRAVITY 1.025 (1.005-1.020)
[2017-10-09 10:05] LABS: BILIRUBIN NEGATIVE (NEGATIVE); GLUCOSE NEGATIVE (NEGATIVE); KETONE NEGATIVE (NEGATIVE); NITRITE NEGATIVE (NEGATIVE); PROTEIN 2+ mg/dL (NEGATIVE); UROBILINOGEN NORMAL (NORMAL)
[2017-10-09 10:08] LABS: MAGNESIUM - SERUM 2.4 mg/dL (1.8-2.4); TROPONIN-I 0.057 ng/mL (0.000-0.060)
[2017-10-09 10:13] LABS: AMORPHOUS SEDIMENT >1+ /lpf (NONE SEEN); BACTERIA MANY /hpf (NONE SEEN); EPITHELIAL CELLS 0-5 /hpf (0-5); HYALINE CAST OCC /lpf (NONE SEEN); RED CELLS - URINE >50 /hpf (0-5); WHITE CELLS - URINE >50 /hpf (0-5)
== END 2017-10-09 15:00 ==
LOC: D.ER 08:50 → D.ICU 11:52 → D.ER 11:52
PROVIDERS: Emergency Medicine
DX: R53.1 Weakness (principal); I48.91 Unspecified atrial fibrillation; R19.5 Other fecal abnormalities; I50.9 Heart failure, unspecified; N28.9 Disorder of kidney and ureter, unspecified; A41.9 Sepsis, unspecified organism; N39.0 Urinary tract infection, site not specified